=== PATIENT | male | born 1945 | race Caucasian/White ===

== ENCOUNTER 2017-09-01 17:50 | Observation (INO) | payer MEDICARE, OTHER ==
[~2017-09-01] VITALS: Ht 193 cm; Wt 79.8 kg
[~2017-09-01 17:50] MED LIST: ASPI-867 PO; ATEN50TA PO; CYAN10009 PO; DIGO125T82 PO; ESCI10TA54 PO; FOLI-43 PO; FURO20TA4 PO; OXYB5TAB11 PO; TAMS0.4C31 PO; TRAM50TA3 PO
[2017-09-01] MEDS ORDERED: LEVETIRACETAM 1000MG/100ML 100 ML IV ONE (18:15)
[2017-09-01] MEDS ORDERED: LORAZEPAM 2MG/ML CPJ IV ONE (18:15)
[2017-09-01] MEDS ORDERED: OLANZAPINE 10 MG/VIAL IM ONE (18:15)
[2017-09-01 18:42] LABS: BASOPHILS % 0.5 % (0.0-2.0); EOSINOPHILS % 4.6 % (0.0-5.0); HEMOGLOBIN. 14.6 g/dL (14.0-18.0); LYMPHOCYTES % 33.8 % (20.0-50.0); MEAN CORPUSCULAR HEMOGLOBIN 30.5 pg (28.0-32.0); MEAN CORPUSCULAR VOLUME 92.2 fL (80.0-94.0); MEAN PLATELET VOLUME 9.1 fl (7.4-10.4); MONOCYTES % 9.5 % (2.0-8.0); NEUTROPHILS % 51.6 % (40.0-76.0); PLATELET 192 x1000/uL (130-400); RED BLOOD CELL COUNT 4.78 mill/uL (4.7-6.1); RED CELL DISTRIBUTION WIDTH 14.6 % (11.6-14.6)
[2017-09-01 18:44] LABS: CHLORIDE 109 mEq/L (98-107)
[2017-09-01 18:51] LABS: ETHANOL BLOOD < 10 mg/dL
[2017-09-01 18:55] LABS: CREATINE KINASE 164 IU/L (39-308)
[2017-09-01 19:02] LABS: CARBAMAZEPINE < 0.5 ug/mL (4-12); PHENOBARBITAL < 2.1 ug/mL (15.0-40.0); VALPROIC ACID < 3.0 ug/mL (50-100)
[2017-09-01 19:07] LABS: DIGOXIN 0.6 ng/mL (0.9-2.0)
[2017-09-01 19:55] LABS: CLARITY URINE CLEAR (CLEAR); COLOR URINE YELLOW (YELLOW); KETONES URINE NEGATIVE (NEGATIVE); LEUKOCYTE ESTERASE URINE NEGATIVE (NEGATIVE); NITRITE URINE NEGATIVE (NEGATIVE); OCCULT BLOOD URINE NEGATIVE (NEGATIVE); PROTEIN URINE 1+ (NEGATIVE); SPECIFIC GRAVITY URINE 1.027 (1.005-1.030); UROBILINOGEN URINE 0.2 E.U./dL (0.2-1.0)
[2017-09-01 20:19] LABS: *AMPHETAMINES SCREEN URINE NEGATIVE (NEGATIVE); *BARBITURATES SCREEN URINE NEGATIVE (NEGATIVE); *BENZODIAZEPINES SCREEN URINE NEGATIVE (NEGATIVE); *COCAINE SCREEN URINE NEGATIVE (NEGATIVE)
[2017-09-01 20:20] LABS: CANNABINOID URINE SCREEN NEGATIVE (NEGATIVE); METHADONE URINE SCREEN NEGATIVE (NEGATIVE); OPIATES URINE SCREEN NEGATIVE (NEGATIVE); PHENCYCLIDINE URINE SCREEN NEGATIVE (NEGATIVE)
[2017-09-01] MEDS ORDERED: NAPR-681 PO (21:44)
[2017-09-01] MEDS ORDERED: DICL50TA9 PO (21:44)
[2017-09-01] MEDS ORDERED: DULO60CA63 PO (21:44)
[2017-09-01] MEDS ORDERED: ASPI-1159 PO (21:44)
[2017-09-01 22:40] VITALS: BP 140/74
[2017-09-01 22:45] VITALS: BP 140/74
[2017-09-01] MEDS ORDERED: ONDANSETRON HCL 4MG/2ML VIAL IV PRN (23:45)
[2017-09-01] MEDS ORDERED: ACETAMINOPHEN 325MG TABLET PO PRN (23:45)
[2017-09-02] MEDS: DEXT 5%/0.45% NACL 1000ML 1,000 ML IV SCH ×2 (01:09→20:28)
[2017-09-02 04:25] VITALS: BP 102/60
[2017-09-02] MEDS: LEVETIRACETAM 500 MG in SODIUM CHLORIDE 0.9% 100 ML IV SCH ×2 (08:49→20:28)
[2017-09-02] MEDS: ENOXAPARIN 40MG/0.4ML SYR SUBCUT SCH (08:49)
[2017-09-02] MEDS: FUROSEMIDE 20MG TABLET PO SCH (08:49)
[2017-09-02] MEDS: ATENOLOL 50 MG TABLET PO SCH (08:49)
[2017-09-02] MEDS: ASPIRIN 81MG EC TABLET PO SCH (08:49)
[2017-09-02] MEDS ORDERED: MEDICATION NOT ON FORMULARY EA (Furosemide 20 MG) PO SCH (09:00)
[2017-09-02] MEDS ORDERED: MEDICATION NOT ON FORMULARY EA (Atenolol 50 MG) PO SCH (09:00)
[2017-09-02] MEDS ORDERED: ENOXAPARIN 30MG/0.3ML SYR SUBCUT SCH (09:00)
[2017-09-02 09:09] VITALS: BP 123/65
[2017-09-02 09:26] LABS: CHLORIDE 111 mEq/L (98-107)
[2017-09-02 09:35] LABS: BASOPHILS % 0.7 % (0.0-2.0); EOSINOPHILS % 4.3 % (0.0-5.0); HDL CHOLESTEROL 56 mg/dL (40-59); HEMATOCRIT. 41.4 % (42.0-52.0); HEMOGLOBIN. 14.1 g/dL (14.0-18.0); LYMPHOCYTES % 33.9 % (20.0-50.0); MEAN CORPUSCULAR HEMOGLOBIN 30.9 pg (28.0-32.0); MEAN CORPUSCULAR VOLUME 91.1 fL (80.0-94.0); MEAN PLATELET VOLUME 9.3 fl (7.4-10.4); MONOCYTES % 9.3 % (2.0-8.0); NEUTROPHILS % 51.8 % (40.0-76.0); PLATELET 200 x1000/uL (130-400); RED BLOOD CELL COUNT 4.54 mill/uL (4.7-6.1); RED CELL DISTRIBUTION WIDTH 14.5 % (11.6-14.6)
[2017-09-02 09:36] LABS: LDL CHOLESTEROL 49 mg/dL (5-100)
[2017-09-02 12:25] VITALS: BP 109/51
[2017-09-02 16:08] VITALS: BP 108/52
[2017-09-02] MEDS: THIAMINE HCL 100MG TABLET PO SCH (19:45)
[2017-09-02] MEDS ORDERED: HALOPERIDOL 1MG TABLET PO PRN (19:45)
[2017-09-02 20:06] VITALS: BP 108/41
[2017-09-02] MEDS ORDERED: TAMSULOSIN HCL 0.4MG SR CAPSULE PO SCH (21:00)
[2017-09-03] VITALS (7 sets, daily range): BP systolic 92–140; BP diastolic 43–82
[2017-09-03 07:20] LABS: HEMATOCRIT 43.2 % (42.0-52.0); HEMOGLOBIN 14.6 g/dL (14.0-18.0); MEAN CORPUSCULAR HEMOGLOBIN 30.9 pg (28.0-32.0); MEAN CORPUSCULAR VOLUME 91.5 fL (80.0-94.0); PLATELET 208 x1000/uL (130-400); RED BLOOD CELL COUNT 4.72 mill/uL (4.7-6.1); RED CELL DISTRIBUTION WIDTH 14.8 % (11.6-14.6)
[2017-09-03 07:25] LABS: CHLORIDE 110 mEq/L (98-107)
[2017-09-03] MEDS: ENOXAPARIN 40MG/0.4ML SYR SUBCUT SCH (08:18)
[2017-09-03] MEDS: FUROSEMIDE 20MG TABLET PO SCH (08:19)
[2017-09-03] MEDS: ATENOLOL 50 MG TABLET PO SCH (08:19)
[2017-09-03] MEDS: ASPIRIN 81MG EC TABLET PO SCH (08:19)
[2017-09-03] MEDS: THIAMINE HCL 100MG TABLET PO SCH (08:19)
[2017-09-03] MEDS: DEXT 5%/0.45% NACL 1000ML 1,000 ML IV SCH ×2 (10:40→10:41)
[2017-09-03] MEDS: LORAZEPAM 2MG/ML CPJ IV PRN ×2 (11:23→20:43)
[2017-09-03] MEDS ORDERED: DIGOXIN 125MCG TABLET PO SCH (18:00)
[2017-09-03] MEDS: LEVETIRACETAM 500 MG in SODIUM CHLORIDE 0.9% 100 ML IV SCH (21:00)
== END 2017-09-03 21:17 | disposition left against medical advice (07) ==
LOC: ER 18:18 → 7WST 20:46 → INTOOBSV 20:46 → EDBEDREQTM 20:48 → EDBEDREQ 20:48 → CMPBEDREQ 22:09
PROVIDERS: ADMIT Internal Medicine; ATTEND Internal Medicine
DX: G93.40 Encephalopathy, unspecified (principal); G40.909 Epilepsy, unspecified, not intractable, without status epilepticus; I48.91 Unspecified atrial fibrillation; F03.90 Unspecified dementia, unspecified severity, without behavioral disturbance, psychotic disturbance, mood disturbance, and anxiety; F10.21 Alcohol dependence, in remission; R26.9 Unspecified abnormalities of gait and mobility; R29.6 Repeated falls; Z79.899 Other long term (current) drug therapy; Z86.73 Personal history of transient ischemic attack (TIA), and cerebral infarction without residual deficits; Z87.891 Personal history of nicotine dependence
CPT/HCPCS: 36415; 70450; 71045; 80048; 80053; 80061; 80156; 80162; 80165; 80184; 80185; 80305; 81003; 82550; 85025; 85027; 93005; 95816; 96361; 96365; 96372; 96375; 96376; 97116; 97162; 99285; G0378; G0482; J1650; J1953; J2060; J3490; 96374; J7050

== ENCOUNTER 2017-11-21 02:16 | Emergency (ER) | payer MEDICARE, OTHER ==
[~2017-11-21] VITALS: Ht 188 cm; Wt 72.0 kg
[~2017-11-21 02:16] MED LIST changes: +ASPI-1159 PO; -ASPI-867 PO; +DICL50TA9 PO; +DULO60CA63 PO; +NAPR-681 PO
[2017-11-21] MEDS ORDERED: SODIUM CHLORIDE 0.9% 1,000 ML IV ONE (02:39)
[2017-11-21] MEDS ORDERED: ONDANSETRON HCL 4MG/2ML INJ IV STA (02:39)
[2017-11-21] MEDS ORDERED: NALOXONE HCL 1 MG/ML 2ML VIAL IV ONE (02:45)
[2017-11-21] MEDS ORDERED: LORAZEPAM 2MG/ML CPJ IV ONE (02:45)
[2017-11-21 03:15] LABS: BASOPHILS % 0.8 % (0.0-2.0); HEMATOCRIT. 44.3 % (42.0-52.0); HEMOGLOBIN. 14.8 g/dL (14.0-18.0); LYMPHOCYTES % 33.3 % (20.0-50.0); MEAN CORPUSCULAR HEMOGLOBIN 30.6 pg (28.0-32.0); MEAN CORPUSCULAR VOLUME 91.7 fL (80.0-94.0); NEUTROPHILS % 53.9 % (40.0-76.0); PLATELET 235 x1000/uL (130-400); RED BLOOD CELL COUNT 4.83 mill/uL (4.7-6.1); RED CELL DISTRIBUTION WIDTH 13.6 % (11.6-14.6)
[2017-11-21 03:18] LABS: CHLORIDE 103 mEq/L (98-107)
[2017-11-21 03:19] LABS: INR 1.1; PROTHROMBIN TIME 10.7 sec (9.1-11.1)
[2017-11-21 03:22] LABS: AMMONIA 29 uMol/L (<32)
[2017-11-21 03:23] LABS: ETHANOL BLOOD < 10 mg/dL
[2017-11-21 03:27] LABS: CREATINE KINASE 90 IU/L (39-308)
[2017-11-21 03:54] LABS: CARBAMAZEPINE < 0.5 ug/mL (4-12); PHENOBARBITAL < 2.1 ug/mL (15.0-40.0); VALPROIC ACID < 3.0 ug/mL (50-100)
[2017-11-21 04:48] LABS: CLARITY URINE CLEAR (CLEAR); COLOR URINE YELLOW (YELLOW); KETONES URINE NEGATIVE (NEGATIVE); LEUKOCYTE ESTERASE URINE NEGATIVE (NEGATIVE); NITRITE URINE NEGATIVE (NEGATIVE); OCCULT BLOOD URINE NEGATIVE (NEGATIVE); PROTEIN URINE 1+ (NEGATIVE); SPECIFIC GRAVITY URINE 1.012 (1.005-1.030); UROBILINOGEN URINE 0.2 E.U./dL (0.2-1.0)
[2017-11-21 05:18] LABS: *AMPHETAMINES SCREEN URINE NEGATIVE (NEGATIVE); *BARBITURATES SCREEN URINE NEGATIVE (NEGATIVE); *BENZODIAZEPINES SCREEN URINE NEGATIVE (NEGATIVE); *COCAINE SCREEN URINE NEGATIVE (NEGATIVE); METHADONE URINE SCREEN NEGATIVE (NEGATIVE); OPIATES URINE SCREEN NEGATIVE (NEGATIVE); PHENCYCLIDINE URINE SCREEN NEGATIVE (NEGATIVE)
[2017-11-21 05:19] LABS: CANNABINOID URINE SCREEN NEGATIVE (NEGATIVE)
[2017-11-21] MEDS ORDERED: LEVETIRACETAM 500MG PREMIX 100 ML IV ONE (06:00)
[2017-11-21] MEDS ORDERED: OLANZAPINE 10 MG/VIAL IM ONE (10:30)
[2017-11-21 13:40] VITALS: BP 122/78
== END 2017-11-21 14:54 | disposition home or self-care (01) ==
LOC: ER 02:16
DX: F10.239 Alcohol dependence with withdrawal, unspecified (principal); G93.49 Other encephalopathy; G40.909 Epilepsy, unspecified, not intractable, without status epilepticus; I10 Essential (primary) hypertension; I48.91 Unspecified atrial fibrillation; Y90.0 Blood alcohol level of less than 20 mg/100 ml
CPT/HCPCS: 36415; 70450; 71045; 80053; 80156; 80165; 80184; 80185; 80305; 81003; 82140; 82550; 83690; 84443; 84484; 85025; 85610; 93005; 96361; 96365; 96375; 99285; G0482; J1953; J2060; J2310; J2405; J7030; J3490

== ENCOUNTER 2017-11-27 22:56 | Emergency (ER) | payer MEDICARE ==
[~2017-11-27] VITALS: Ht 180.3 cm; Wt 80.0 kg
[2017-11-28] MEDS ORDERED: LORAZEPAM 2MG/ML CPJ IV ONE
[2017-11-28 00:58] LABS: CLARITY URINE CLEAR (CLEAR); COLOR URINE YELLOW (YELLOW); KETONES URINE NEGATIVE (NEGATIVE); LEUKOCYTE ESTERASE URINE NEGATIVE (NEGATIVE); NITRITE URINE NEGATIVE (NEGATIVE); OCCULT BLOOD URINE NEGATIVE (NEGATIVE); PROTEIN URINE NEGATIVE (NEGATIVE); SPECIFIC GRAVITY URINE 1.003 (1.005-1.030); UROBILINOGEN URINE 0.2 E.U./dL (0.2-1.0)
[2017-11-28] MEDS ORDERED: HALOPERIDOL LACTATE 5MG/ML VIAL IM ONE (01:15)
[2017-11-28 02:11] LABS: *AMPHETAMINES SCREEN URINE NEGATIVE (NEGATIVE); *BARBITURATES SCREEN URINE NEGATIVE (NEGATIVE); *BENZODIAZEPINES SCREEN URINE NEGATIVE (NEGATIVE); *COCAINE SCREEN URINE NEGATIVE (NEGATIVE); CANNABINOID URINE SCREEN NEGATIVE (NEGATIVE); METHADONE URINE SCREEN NEGATIVE (NEGATIVE); OPIATES URINE SCREEN NEGATIVE (NEGATIVE); PHENCYCLIDINE URINE SCREEN NEGATIVE (NEGATIVE)
[2017-11-28] MEDS ORDERED: DEXTROSE 50% WATER 50ML SYRINGE IV ONE ×3 (03:00→07:45)
[2017-11-28 06:17] LABS: BASOPHILS % 0.8 % (0.0-2.0); EOSINOPHILS % 1.6 % (0.0-5.0); HEMATOCRIT. 41.5 % (42.0-52.0); HEMOGLOBIN. 14.1 g/dL (14.0-18.0); LYMPHOCYTES % 35.3 % (20.0-50.0); MEAN CORPUSCULAR HEMOGLOBIN 30.8 pg (28.0-32.0); MEAN CORPUSCULAR VOLUME 90.8 fL (80.0-94.0); MEAN PLATELET VOLUME 8.8 fl (7.4-10.4); MONOCYTES % 9.2 % (2.0-8.0); NEUTROPHILS % 53.1 % (40.0-76.0); PLATELET 235 x1000/uL (130-400); RED BLOOD CELL COUNT 4.57 mill/uL (4.7-6.1); RED CELL DISTRIBUTION WIDTH 13.8 % (11.6-14.6)
[2017-11-28 06:53] LABS: CHLORIDE 113 mEq/L (98-107)
[2017-11-28 07:01] LABS: ETHANOL BLOOD 39 mg/dL
[2017-11-28 12:57] VITALS: BP 116/87
== END 2017-11-28 14:00 | disposition home or self-care (01) ==
LOC: ER 23:36 → CANBEDREQ 11-28 13:07 → ER 11-28 14:00
DX: F10.229 Alcohol dependence with intoxication, unspecified (principal); I48.91 Unspecified atrial fibrillation; G40.909 Epilepsy, unspecified, not intractable, without status epilepticus; I10 Essential (primary) hypertension; Y90.1 Blood alcohol level of 20-39 mg/100 ml; I51.9 Heart disease, unspecified; Z99.81 Dependence on supplemental oxygen; Z78.1 Physical restraint status; Z87.828 Personal history of other (healed) physical injury and trauma
CPT/HCPCS: 36415; 80053; 80305; 81003; 82962; 84484; 85025; 93005; 96372; 96374; 99285; G0482; J1630

== ENCOUNTER 2018-01-02 18:36 | Emergency (ER) | payer MEDICARE ==
[~2018-01-02] VITALS: Ht 177.8 cm; Wt 75.0 kg
[2018-01-02] MEDS ORDERED: CHLORDIAZEPOXIDE 25MG CAPSULE PO ONE ×2 (19:00→21:45)
[2018-01-02 19:36] LABS: CHLORIDE 112 mEq/L (98-107)
[2018-01-02 19:37] LABS: BASOPHILS % 0.9 % (0.0-2.0); EOSINOPHILS % 4.1 % (0.0-5.0); HEMATOCRIT. 44.3 % (42.0-52.0); HEMOGLOBIN. 15.1 g/dL (14.0-18.0); LYMPHOCYTES % 24.9 % (20.0-50.0); MEAN CORPUSCULAR HEMOGLOBIN 31.1 pg (28.0-32.0); MEAN CORPUSCULAR VOLUME 91.3 fL (80.0-94.0); MEAN PLATELET VOLUME 8.7 fl (7.4-10.4); NEUTROPHILS % 61.1 % (40.0-76.0); PLATELET 221 x1000/uL (130-400); RED BLOOD CELL COUNT 4.85 mill/uL (4.7-6.1)
[2018-01-02 19:40] LABS: ETHANOL BLOOD < 10 mg/dL
[2018-01-02] MEDS ORDERED: KETOROLAC 15MG/ML VIAL IV ONE (20:15)
[2018-01-02 21:03] LABS: CLARITY URINE CLEAR (CLEAR); COLOR URINE DARK YELLOW (YELLOW); KETONES URINE TRACE (NEGATIVE); LEUKOCYTE ESTERASE URINE NEGATIVE (NEGATIVE); NITRITE URINE NEGATIVE (NEGATIVE); OCCULT BLOOD URINE NEGATIVE (NEGATIVE); PH URINE 5.5 (4.5-8.0); PROTEIN URINE NEGATIVE (NEGATIVE); SPECIFIC GRAVITY URINE 1.025 (1.005-1.030); UROBILINOGEN URINE 0.2 E.U./dL (0.2-1.0)
[2018-01-02 21:13] LABS: CANNABINOID URINE SCREEN NEGATIVE (NEGATIVE); OPIATES URINE SCREEN NEGATIVE (NEGATIVE); PHENCYCLIDINE URINE SCREEN NEGATIVE (NEGATIVE)
[2018-01-02 21:14] LABS: *AMPHETAMINES SCREEN URINE NEGATIVE (NEGATIVE); *BARBITURATES SCREEN URINE NEGATIVE (NEGATIVE); *BENZODIAZEPINES SCREEN URINE NEGATIVE (NEGATIVE); *COCAINE SCREEN URINE NEGATIVE (NEGATIVE); METHADONE URINE SCREEN NEGATIVE (NEGATIVE)
[2018-01-03 15:15] VITALS: BP 124/57
== END 2018-01-03 17:35 | disposition home or self-care (01) ==
LOC: ER 18:36
DX: R45.851 Suicidal ideations (principal); F10.239 Alcohol dependence with withdrawal, unspecified; Y90.0 Blood alcohol level of less than 20 mg/100 ml; I10 Essential (primary) hypertension; Z79.899 Other long term (current) drug therapy
CPT/HCPCS: 36415; 70450; 80053; 80305; 80307; 80329; 81003; 85025; 93005; 96374; 99285; G0482; J1885